=== PATIENT | female | born 1975 | race American Indian/Alaskan Native ===

== ENCOUNTER 2017-07-30 15:01 | Emergency (ER) | payer MEDICAID ==
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
--- NOTE | 2017-07-30 20:59 | XRay Report ---
FINAL REPORT PROCEDURE: XR HAND 3+V RT TECHNIQUE: Three-view right hand HISTORY: pain x 1 month, 3rd and 4th fingers COMPARISON: No prior studies are available for comparison. FINDINGS: Mild soft tissue swelling. No definite evidence of acute fracture. No significant pathology 3rd 4th finger seen IMPRESSION: No acute fracture suspected
[2017-07-30] MEDS ORDERED: TORADOL IM ONE (23:48)
--- NOTE | 2017-07-30 23:54 | Emergency Department Report ---
Upper Extremity - HPI Chief Complaint: Extremity Injury, Upper Stated Complaint: RIGHT INDEX FINGER PAIN Time Seen by Provider: 07/30/17 16:03 Upper Extremity: Left Hand (left hand pain x1 month), Left Ring Finger (left ring finger pain x1 month) Occurred When: >5 Days (1 month) Severity: moderate Symptoms: Yes Pain with Movement, Yes Swelling (some swelling left mid hand), No Deformity, No Limited Range of Movement, No Numbness, No Weakness, No Bruising/Ecchymosis, No Laceration or Abrasion Other History: 41-year-old female past medical history smoker presents with complaint of persistent discomfort in right hand for one month. States she has noticed some intermittent swelling of her right mid hand. She has pain specifically in her right knuckle at ring finger. Denies any direct trauma. Denies any fevers chills. Denies any numbness or tingling. ED Review of Systems ROS: Stated complaint: RIGHT INDEX FINGER PAIN Other details as noted in HPI Constitutional: denies: chills, fever Eyes: denies: eye pain, eye discharge, vision change ENT: denies: ear pain, throat pain Respiratory: denies: cough, shortness of breath, wheezing Cardiovascular: denies: chest pain, palpitations Endocrine: no symptoms reported Gastrointestinal: denies: abdominal pain, nausea, diarrhea Genitourinary: denies: urgency, dysuria, discharge Musculoskeletal: as per HPI, arthralgia. denies: back pain, joint swelling Skin: denies: rash, lesions Neurological: denies: headache, weakness, paresthesias Psychiatric: denies: anxiety, depression Hematological/Lymphatic: denies: easy bleeding, easy bruising ED Past Medical Hx - Past Medical History Previous Medical History?: No - Surgical History Past Surgical History?: No - Social History Smoking Status: Current Every Day Smoker Substance Use Type: None - Medications Home Medications: Home Medications Medication Instructions Recorded Confirmed Last Taken Type Acetaminophen/Codeine [Tylenol 1 tab PO Q6H PRN #10 tab 07/31/17 Unknown Rx /Codeine # 3 tab] Cephalexin [Keflex] 500 mg PO Q12HR #28 cap 07/31/17 Unknown Rx Naproxen [Naprosyn TAB] 500 mg PO BID PRN #25 tablet 07/31/17 Unknown Rx Sulfamethoxazole/Trimethoprim 1 each PO BID #14 tablet 07/31/17 Unknown Rx [Bactrim DS TAB] Upper Extremity Exam - Exam General: Vital signs noted. No distress. Alert and acting appropriately. Head and Torso: No HEENT Abnormality, No Neck Tenderness, No Chest/Lungs Abnormality, No Abdominal Tenderness, No Back Tenderness Shoulder Exam: Yes Normal Range of Motion in Shoulder, No Shoulder Tenderness, No Clavicle Tenderness, No Shoulder Deformity, No AC Joint Tenderness Arm Exam: No Arm/Humerus Tenderness, No Arm Deformity Elbow: No Elbow Tenderness, No Normal Range of Motion in Elbow, No Elbow Deformity Forearm: No Forearm Tenderness, No Forearm Deformity, No Pain with Pronation, No Pain with Supination Wrist: Yes Normal ROM in Wrist (right wrist flexion and extension intact), No Wrist Tenderness, No Wrist Deformity, No Snuffbox Tenderness, No Pain with Axial Thumb Compression Hand: Yes Hand Tenderness, Yes Normal ROM in Digit(s) (range of motion DIPs PIPs and MCPs and the lumbricals fully intact on clinical exam all fingers right hand), No Hand Deformity, No Digit Tenderness, No Digit(s) Deformity, No Tendon Dysfunction CMS Exam: Yes Normal Distal Pulses (distal capillary refill less than one second in all fingers, distal ulnar and radial pulses strong to palpation), Yes Normal Distal Sensation (stool proprioception and sensation to pressure and tach ), No Broken Skin, No Normal Capillary Refill Hand L/R Back: 1 - Patient describes pain here. Tiny area of erythema volar aspect right mid hand ED Course Vital Signs 07/30/17 07/30/17 15:39 15:42 Pulse Rate 90 90 Respiratory 16 Rate Blood Pressure 119/72 O2 Sat by Pulse 100 99 Oximetry ED Medical Decision Making - Lab Data Result diagrams: 07/30/17 23:49 - Medical Decision Making A/P: hand cellulitis vs early tenosynovitis 1-treat patient empirically with both Bactrim and Keflex 1 week course to cover staph and strep as patient has tiny area of erythema on the volar aspect right hand 2-and neurovascularly intact distal capillary refill distal sensation and range of motion all joints fully intact, swelling is minimal and barely visible on inspection and no clearly demarcated significant area of erythema 3-follow-up with primary care and orthopedics. Advised patient to return to the ED if swelling pain worsens or she develops fevers and chills. Patient stated she understood my instructions 4- discussed with Dr. Gomez before discharge Critical care attestation.: If time is entered above; I have spent that time in minutes in the direct care of this critically ill patient, excluding procedure time. ED Disposition Clinical Impression: Right hand pain, Tenosynovitis of hand Disposition: TO HOME OR SELFCARE Is pt being admited?: No Does the pt Need Aspirin: No Condition: Stable Instructions: Tenosynovitis (ED) Prescriptions: Acetaminophen/Codeine [Tylenol /Codeine # 3 tab] 1 tab PO Q6H PRN #10 tab PRN Reason: Pain , Severe (7-10) Cephalexin [Keflex] 500 mg PO Q12HR #28 cap Naproxen [Naprosyn TAB] 500 mg PO BID PRN #25 tablet PRN Reason: Pain Sulfamethoxazole/Trimethoprim [Bactrim DS TAB] 1 each PO BID #14 tablet Referrals: KAREN BRITTON MD [Other] - 3-5 Days RENATO BLACK MD [Staff Physician] - 3-5 Days [facility] [Provider Group] - 3-5 Days CHARLEE COLLADO MD [Staff Physician] - 3-5 Days Forms: Work/School Release Form(ED) Time of Disposition: 23:55
[2017-07-31 00:11] LABS: Basophils % (Auto) 0.4 % (0.0-1.8); Hemoglobin 12.4 gm/dl (10.1-14.3); Mean Corpuscular HGB Conc 32 % (30-34); Mean Corpuscular Volume 70 fl (79-97); Platelet Count 436 K/mm3 (140-440); Red Blood Count 5.54 M/mm3 (3.65-5.03); Red Cell Distribution Width 15.8 % (13.2-15.2); White Blood Count 13.2 K/mm3 (4.5-11.0)
[2017-07-31 00:13] LABS: Mean Corpuscular Hemoglobin 22 pg (28-32)
[2017-07-31 00:34] LABS: Anion Gap 17 mmol/L; BUN/Creatinine Ratio 16.66; Blood Urea Nitrogen 10 mg/dL (7-17); Calcium 8.7 mg/dL (8.4-10.2); Carbon Dioxide 20 mmol/L (22-30); Chloride 104.5 mmol/L (98-107); Creatine Kinase 120 units/L (30-135); Glucose 84 mg/dL (65-100); Potassium 3.6 mmol/L (3.6-5.0); Sodium 138 mmol/L (137-145)
[2017-07-31 01:14] VITALS: BP 119/92
== END 2017-07-31 01:25 | disposition home or self-care (01) ==
LOC: ED 15:01
DX: M65.841 Other synovitis and tenosynovitis, right hand (principal); F17.200 Nicotine dependence, unspecified, uncomplicated
CPT/HCPCS: 36415; 73130; 80048; 82550; 85025; 87040; 96372; 99283; J1885